=== PATIENT | male | born 1990 | race Caucasian/White ===

== ENCOUNTER 2016-11-05 00:22 | Emergency (ER) | payer MEDICAID, OTHER ==
[2016-11-05] MEDS ORDERED: NS 1,000 ML IV ONE (00:27)
--- NOTE | 2016-11-05 00:32 | EDPHY ---
H & P Time Seen by Provider: 11/05/16 00:27 HPI/ROS: HPI The patient presents brought in by ambulance from [facility] for an episode of ALOC. Apparently, he was witnessed by the guards at senior living to be in coherent, he appeared pale, he then stumbled and fell into a pillar. He did not lose consciousness. He did not have any seizure-like activity. Paramedics noticed that he was tachycardic upon standing to the 120s from 70s while seated. His blood pressure was normal. They administered a 200 mL bolus of normal saline. The patient is on a work release program from senior living. He recently restarted his psych medications. He has had 2 days of chest tightness which she attributes to anxiety. He has no prior history of similar.. REVIEW OF SYSTEMS Constitutional: No fever, no chills. Eyes: No discharge. ENT: No sore throat. Cardiovascular: Chest tightness present, no palpitations. Respiratory: No cough, no shortness of breath. Gastrointestinal: No abdominal pain, no vomiting. Genitourinary: No hematuria. Musculoskeletal: No back pain. Skin: No rashes. Neurological: No headache. PMHx: History of anxiety Soc Hx: Currently incarcerated PHYSICAL General Appearance: Alert, no distress Eyes: Pupils equal and round no pallor or injection ENT, Mouth: Mucous membranes moist Respiratory: There are no retractions, lungs are clear to auscultation Cardiovascular: Regular rate and rhythm Gastrointestinal: Abdomen is soft and non-tender, no masses, bowel sounds normal Neurological: A&O, moves all extremities Skin: Warm and dry, no rashes Musculoskeletal: Neck is supple non tender Extremities: symmetrical, full range of motion Psychiatric: Patient is oriented X 3, there is no agitation Source: Patient, EMS Exam Limitations: No limitations - Personal History Tetanus Vaccine Date: < 10 YEARS - Medical/Surgical History Hx Asthma: No Hx Chronic Respiratory Disease: No Hx Diabetes: No Hx Cardiac Disease: No Hx Renal Disease: No Hx Cirrhosis: No Hx Alcoholism: No Hx HIV/AIDS: No Hx Splenectomy or Spleen Trauma: No Other PMH: DENIES - Social History Smoking Status: Current every day smoker Constitutional: Initial Vital Signs Temperature (C) 36.6 C 11/05/16 00:29 Heart Rate 67 11/05/16 00:29 Respiratory Rate 18 11/05/16 00:29 Blood Pressure 105/62 11/05/16 00:29 O2 Sat (%) 98 11/05/16 00:29 O2 Delivery Mode Room Air O2 (L/minute) 2 Allergies/Adverse Reactions: No Known Allergies Allergy (Unverified 04/21/15 15:18) Home Medications: Medication Instructions Recorded Celexa 11/05/16 LaMICtal 11/05/16 traZODone 11/05/16 Medical Decision Making - Diagnostics EKG Interpretation: EKG: Complete interpretation has been separately recorded in the [facility] archive. Summary impression: Normal sinus rhythm Imaging Results: Imaging Impressions Chest X-Ray 11/05/16 00:27 Impression: No acute pulmonary disease. Differential Diagnosis: Assessment: This is a 26-year-old male with anxiety who presents brought in by ambulance from senior living where he is on a work release program for an episode of ALOC in which he became incoherent, began to stumble and fall and was noticed to be cool and pale. This episode has now resolved and the patient now is feeling only anxious. His vital signs are normal. There was some concern for orthostasis by the paramedics. Differential diagnosis: Vasovagal episode, drug intoxication, seizure, less likely TIA given his young age. ED course: In the emergency department, patient was given IV fluid bolus for presumed hypovolemia. He was placed on the clinical research monitor with no events. Labs were checked and were relatively unremarkable except for amphetamine positive on his drug screen. I feel he could have had a vasovagal episode, possibly related to medication use. He is feeling well now and is suitable for discharge. Discharge plan: Discharged back to senior living with plan for increase fluid intake. - Data Points Laboratory Results: Laboratory Results 11/05/16 00:25 11/05/16 00:25 11/05/16 11/05/16 11/05/16 05:35 00:25 00:25 WBC 6.56 10^3/uL 10^3/uL (3.80-9.50) RBC 5.59 10^6/uL 10^6/uL (4.40-6.38) Hgb 17.4 g/dL g/dL (13.7-17.5) Hct 48.7 % % (40.0-51.0) MCV 87.1 fL fL (81.5-99.8) MCH 31.1 pg pg (27.9-34.1) MCHC 35.7 g/dL g/dL (32.4-36.7) RDW 12.0 % % (11.5-15.2) Plt Count 244 10^3/uL 10^3/uL (150-400) MPV 9.2 fL fL (8.7-11.7) Neut % (Auto) 70.2 % % (39.3-74.2) Lymph % (Auto) 21.6 % % (15.0-45.0) [place] % (Auto) 6.7 % % (4.5-13.0) Eos % (Auto) 0.6 % % (0.6-7.6) Baso % (Auto) 0.6 % % (0.3-1.7) Nucleat RBC Rel Count 0.0 % % (0.0-0.2) Absolute Neuts (auto) 4.60 10^3/uL 10^3/uL (1.70-6.50) Absolute Lymphs (auto) 1.42 10^3/uL 10^3/uL (1.00-3.00) Absolute Monos (auto) 0.44 10^3/uL 10^3/uL (0.30-0.80) Absolute Eos (auto) 0.04 10^3/uL 10^3/uL (0.03-0.40) Absolute Basos (auto) 0.04 10^3/uL 10^3/uL (0.02-0.10) Absolute Nucleated RBC 0.00 10^3/uL 10^3/uL (0-0.01) Immature Gran % 0.3 % % (0.0-1.1) Immature Gran # 0.02 10^3/uL 10^3/uL (0.00-0.10) Sodium 142 mEq/L mEq/L (134-144) Potassium 3.6 mEq/L mEq/L (3.5-5.2) Chloride 101 mEq/L mEq/L (97-110) Carbon Dioxide 24 mEq/l mEq/l (22-31) Anion Gap 17 mEq/L H mEq/L (8-16) BUN 18 mg/dL mg/dL (7-23) Creatinine 1.0 mg/dL mg/dL (0.7-1.3) Estimated GFR > 60 Glucose 126 mg/dL H mg/dL (70-100) Calcium 9.8 mg/dL mg/dL (8.5-10.4) Total Bilirubin 1.2 mg/dL mg/dL (0.1-1.4) AST 63 IU/L H IU/L (17-59) ALT 64 IU/L IU/L (21-72) Alkaline Phosphatase 76 IU/L IU/L (38-126) Troponin I 0.034 ng/mL ng/mL (0.000-0.034) Total Protein 8.0 g/dL g/dL (6.3-8.2) Albumin 4.9 g/dL g/dL (3.5-5.0) Urine Opiates Screen NEGATIVE (NEGATIVE) Urine Barbiturates NEGATIVE (NEGATIVE) Ur Phencyclidine Scrn NEGATIVE (NEGATIVE) Ur Amphetamine Screen NON-NEGATIVE H (NEGATIVE) U Benzodiazepines Scrn NEGATIVE (NEGATIVE) Urine Cocaine Screen NEGATIVE (NEGATIVE) U Marijuana (THC) Screen NEGATIVE (NEGATIVE) Medications Given: Discontinued Medications Sodium Chloride (Ns) 1,000 mls @ 0 mls/hr IV EDNOW ONE; Wide Open PRN Reason: Protocol Stop: 11/05/16 00:28 Last Admin: 11/05/16 00:43 Dose: 1,000 mls Departure - Departure Disposition: Law Enforcement/Court/Long Term Clinical Impression: Altered mental status Qualifiers: Altered mental status type: transient alteration of awareness Qualified Code(s) : R40.4 - Transient alteration of awareness Condition: Good Instructions: Near Syncope (ED) Referrals: [facility],. [Clinic] - As per Instructions
--- NOTE | 2016-11-05 00:40 | CPEKG ---
Heart Rate: 66 RR Interval: 909 P-R Interval: 164 QRSD Interval: 114 QT Interval: 504 QTC Interval: 529 P [place]: 61 QRS [place]: 83 T Wave [place]: 58 EKG Severity - ABNORMAL ECG - EKG Impression: SINUS RHYTHM EKG Impression: INCOMPLETE RIGHT BUNDLE BRANCH BLOCK Electronically Signed By: Tania Lozoya 05-Nov-2016 08:42:57
[2016-11-05 00:55] LABS: ALANINE AMINOTRANSFERASE 64 IU/L (21-72); ALBUMIN 4.9 g/dL (3.5-5.0); ALKALINE PHOSPHATASE 76 IU/L (38-126); ANION GAP 17 mEq/L (8-16); ASPARTATE AMINOTRANSFERASE 63 IU/L (17-59); BILIRUBIN,TOTAL 1.2 mg/dL (0.1-1.4); CALCIUM 9.8 mg/dL (8.5-10.4); CARBON DIOXIDE 24 mEq/l (22-31); CHLORIDE 101 mEq/L (97-110); GLOMERULAR FILTRATION RATE > 60; GLUCOSE 126 mg/dL (70-100); POTASSIUM 3.6 mEq/L (3.5-5.2); SODIUM 142 mEq/L (134-144)
[2016-11-05 00:57] LABS: % IMMATURE GRANULYOCYTES 0.3 % (0.0-1.1); ABSOLUTE IMMATURE GRANULOCYTES 0.02 10^3/uL (0.00-0.10); ADD DIFF? NO; ADD MORPH? NO; ADD SCAN? NO; ATYPICAL LYMPHOCYTE FLAG 0 (0-99); FRAGMENT RBC FLAG 0 (0-99); HEMATOCRIT 48.7 % (40.0-51.0); HEMOGLOBIN 17.4 g/dL (13.7-17.5); LEFT SHIFT FLG 0 (0-99); MEAN CELL HEMOGLOBIN 31.1 pg (27.9-34.1); MEAN CELL HEMOGLOBIN CONCENTR. 35.7 g/dL (32.4-36.7); MEAN CELL VOLUME 87.1 fL (81.5-99.8); MEAN PLATELET VOLUME 9.2 fL (8.7-11.7); PLATELET COUNT 244 10^3/uL (150-400); RED BLOOD CELL COUNT 5.59 10^6/uL (4.40-6.38)
[2016-11-05 01:07] LABS: TROPONIN I 0.034 ng/mL (0.000-0.034)
[2016-11-05 03:43] VITALS: O2SAT 96
[2016-11-05 06:29] VITALS: BP 136/64; PULSE 70; RESP 18; TEMP 97.7
== END 2016-11-05 06:26 ==
LOC: EDUNIT#
DX: R40.4 Transient alteration of awareness (principal); E86.9 Volume depletion, unspecified; F17.200 Nicotine dependence, unspecified, uncomplicated
CPT/HCPCS: 80305